=== PATIENT | male | born 1980 | race Hispanic/Latino ===

== ENCOUNTER 2024-08-31 01:21 | Emergency (ER) | payer SELFPAY ==
[2024-08-31 01:45] VITALS: BP 179/107; PULSE 80; RESP 15; TEMP 36.5; O2SAT 99
[2024-08-31] MEDS: PROCHLORPERAZINE EDISYLATE 10 MG/2 ML VIAL IV PUSH (03:08)
[2024-08-31] MEDS: diphenhydrAMINE HCl INJ 50 MG/ML VIAL 25 MG IV PUSH (03:10)
[2024-08-31] MEDS: KETOROLAC 15 MG/ML VIAL (*BKC) IV PUSH (03:11)
[2024-08-31] MEDS: SODIUM CHLORIDE 0.9% IV 1,000 ML 999 ML IV CONT (03:16)
--- NOTE | 2024-08-31 03:43 | ED_ITS ---
HPI - General Adult General Chief complaint: Headache Stated complaint: headache x 4 days Time Seen by Provider: 08/31/24 02:51 History of Present Illness HPI narrative: 44-year-old male presenting to the emergency department for evaluation for headache that is been ongoing for the last 3-4 days. Patient denies any falls or injuries. Patient denies any fevers. Patient denies any neck pain or back pain. Patient states that the headache is all over. Patient does report a prior history of headaches. Related Data Allergies Allergy/AdvReac Type Severity Reaction Status Date / Time Penicillins AdvReac Other Verified 08/31/24 03:17 Course Vital Signs Vital signs: Vital Signs Temperature 97.7 F 08/31/24 01:45 Pulse Rate 80 08/31/24 01:45 Respiratory Rate 15 08/31/24 01:45 Blood Pressure 179/107 H 08/31/24 01:45 Pulse Oximetry 99 08/31/24 01:45 Oxygen Delivery Room Air 08/31/24 01:45 Temperature 97.7 F 08/31/24 01:45 Pulse Rate 91 08/31/24 04:08 Respiratory Rate 15 08/31/24 04:08 Blood Pressure 146/98 H 08/31/24 04:08 Pulse Oximetry 98 08/31/24 04:08 Oxygen Delivery Room Air 08/31/24 01:45 Medical Decision Making MDM Narrative Medical decision making narrative: Patient was treated with IV Toradol, IV Compazine, IV Benadryl and IV fluids. On re-evaluation patient states he does feel improved. Patient was comfortable with plan for discharge and close follow-up. Vital Signs Vital Signs: Vital Signs Temperature 97.7 F 08/31/24 01:45 Pulse Rate 80 08/31/24 01:45 Respiratory Rate 15 08/31/24 01:45 Blood Pressure 179/107 H 08/31/24 01:45 Pulse Oximetry 99 08/31/24 01:45 Oxygen Delivery Room Air 08/31/24 01:45 Temperature 97.7 F 08/31/24 01:45 Pulse Rate 91 08/31/24 04:08 Respiratory Rate 15 08/31/24 04:08 Blood Pressure 146/98 H 08/31/24 04:08 Pulse Oximetry 98 08/31/24 04:08 Oxygen Delivery Room Air 08/31/24 01:45 Discharge Plan Discharge Clinical Impression: Headache Patient Disposition: Home, Self-Care Condition: Stable Instructions: Antibiotic Form, Migraine Headache (ED) Additional Instructions: Have close follow-up with your primary care physician. If you have any worsening symptoms please call or return to the emergency department. Patient Language: [place]ic Follow-up/Referrals: UNKNOWN,DOCTOR [Primary Care Provider] -
[2024-08-31 04:08] VITALS: BP 146/98; PULSE 91; RESP 15; O2SAT 98
== END 2024-08-31 04:48 | disposition home or self-care (01) ==
PROVIDERS: Emergency Provider Emergency Medicine
DX: R51.9 Headache, unspecified (principal)
CPT/HCPCS: 96361; 96374; 96375; 99284; J0780; J1200; J1885; J7030